=== PATIENT | female | born 1935 | race Caucasian/White ===

== ENCOUNTER 2022-01-29 09:39 | Emergency (ER) | payer MEDICARE ==
[~2022-01-29 09:39] MED LIST: ASPIRIN EC81 MG PO; BACTRIM DS TAB1 EACH PO; HCTZ25 MG PO; LOPRESSOR25 MG PO; NORVASC5 MG PO; VOLTAREN100 GM TOP
[2022-01-29 10:01] LABS: BASOPHIL 1.5 % (0-2); EOSINOPHIL 2.4 % (0-7); HCT 41.3 % (37.0-47.0); HGB 13.5 g/dl (12.5-16.0); LYMPHOCYTE 17.2 % (15-48); MCH 30.7 pg (25.0-31.0); MCHC 32.7 g/dL (32.0-36.0); MCV 93.9 fL (78.0-100.0); MONOCYTE 8.9 % (0-12); MPV 9.8 fL (6.0-9.5); NEUTROPHIL 69.5 % (41-80); NRBC 0; PLT 357 K/uL (150-400); RDW 13.5 % (11.5-14.0); WBC 8.8 K/uL (4.0-10.5)
[2022-01-29 10:12] LABS: INR 1.05 (0.9-1.2); PROTHROMBIN TIME 13.4 SECONDS (11.9-13.9); PTT 28.1 SECONDS (24.9-34.6)
[2022-01-29 10:16] LABS: ALBUMIN 3.3 g/dL (3.4-5.0); BILIRUBIN - TOTAL 0.8 mg/dL (0.2-1.0); BUN/CREAT RATIO (CALC) 23.5 RATIO; CREATININE 1.02 mg/dL (0.51-0.95); GLOBULIN (CALCULATION) 4.1 g/dL; POTASSIUM 4.1 mmol/L (3.5-5.1); TOTAL PROTEIN 7.4 g/dL (6.4-8.2)
== END 2022-01-29 13:06 | disposition home or self-care (01) ==
LOC: FER 09:39
PROVIDERS: Emergency Medicine
DX: R42 Dizziness and giddiness (principal); I10 Essential (primary) hypertension; Z88.5 Allergy status to narcotic agent; Z79.899 Other long term (current) drug therapy; G93.0 Cerebral cysts; I70.0 Atherosclerosis of aorta
CPT/HCPCS: 36415; 70450; 71045; 80053; 80061; 84484; 85025; 85610; 85730; 93005; Q9967